=== PATIENT | male | born 1945 | race African-American/Black ===

== ENCOUNTER 2024-10-17 10:13 | Emergency (ER) | payer OTHER, MEDICAID ==
[~2024-10-17] VITALS: Ht 177.8 cm; Wt 78.0 kg
[2024-10-17 10:15] VITALS: O2SAT 99
[2024-10-17 10:44] LABS: HEMOGLOBIN. 12.9 g/dL (14.0-18.0); MEAN CORPUSCULAR HEMOGLOBIN 32.5 pg (28.0-32.0); MEAN CORPUSCULAR HGB CONC 33.1 g/dL (31.0-37.0); MEAN CORPUSCULAR VOLUME 98.2 fL (80.0-94.0); MEAN PLATELET VOLUME 8.1 fl (7.4-10.4); PLATELET 169 x1000/uL (130-400); RED BLOOD CELL COUNT 3.97 mill/uL (4.7-6.1); RED CELL DISTRIBUTION WIDTH 13.4 % (11.6-14.6); WHITE BLOOD COUNT 5.9 x1000/uL (4.5-11.0)
[2024-10-17] MEDS: SODIUM CHLORIDE 0.9% 1,000 ML IV ONE ×2 (10:44→12:11)
[2024-10-17] MEDS: ONDANSETRON HCL 4MG/2ML INJ IV STA (10:44)
[2024-10-17 10:46] LABS: DIFFERENTIAL COMMENT 1
[2024-10-17 10:54] LABS: CARBON DIOXIDE 24 mEq/L (21-32); CHLORIDE 102 mEq/L (98-107); POTASSIUM 4.3 mEq/L (3.5-5.1); SODIUM 140 mEq/L (136-145)
[2024-10-17 10:55] LABS: CALCIUM 9.8 mg/dL (8.7-10.4)
[2024-10-17 11:00] LABS: CREATININE 1.1 mg/dL (0.6-1.3); GLUCOSE 152 mg/dL (70-105); UREA NITROGEN BLOOD 11 mg/dL (9-23)
[2024-10-17 11:13] LABS: PLATELET ESTIMATE NORMAL
[2024-10-17] MEDS ORDERED: ONDA4TAB50 MT (12:19)
[2024-10-17] MEDS ORDERED: IMOD MT (12:19)
[2024-10-17 12:51] LABS: CLARITY URINE CLEAR (CLEAR); COLOR URINE YELLOW (YELLOW); GLUCOSE URINE NEGATIVE (NEGATIVE); KETONES URINE NEGATIVE (NEGATIVE); LEUKOCYTE ESTERASE URINE NEGATIVE (NEGATIVE); NITRITE URINE NEGATIVE (NEGATIVE); OCCULT BLOOD URINE NEGATIVE (NEGATIVE); PROTEIN URINE NEGATIVE (NEGATIVE); SPECIFIC GRAVITY URINE 1.009 (1.005-1.030)
[2024-10-17 13:50] VITALS: BP 146/71; PULSE 88; RESP 14; TEMP 36.4; O2SAT 99
== END 2024-10-17 14:22 | disposition home or self-care (01) ==
LOC: ER 10:23
DX: K52.9 Noninfective gastroenteritis and colitis, unspecified (principal); E78.00 Pure hypercholesterolemia, unspecified; I10 Essential (primary) hypertension; Z79.899 Other long term (current) drug therapy
CPT/HCPCS: 99283; 96374; 96361; 80048; 81003; 83690; 85025; 36415; J2405; J7030